=== PATIENT | male | born 1985 | race Caucasian/White ===

== ENCOUNTER 2024-09-17 19:24 | Inpatient (IN) | payer MEDICAID ==
[~2024-09-17] VITALS: Ht 182.9 cm; Wt 75.5 kg
[2024-09-17 20:29] LABS: BASOPHILS # (AUTO) 0.1 X10'3 (0-0.2); BASOPHILS % (AUTO) 1.2 % (0-1); EOSINOPHILS # (AUTO) 0.3 X10'3 (0-0.9); HEMATOCRIT 46.2 % (42.0-52.0); HEMOGLOBIN 15.1 g/dl (14.0-17.9); LYMPHOCYTES # (AUTO) 1.9 X10'3 (1.1-4.8); LYMPHOCYTES % (AUTO) 17.1 % (21-51); MEAN CORPUSCULAR HEMOGLOBIN 29.7 PG (27.0-31.0); MEAN CORPUSCULAR HGB CONC 32.6 g/dL (33.0-36.5); MEAN CORPUSCULAR VOLUME 91.1 FL (78-98); MEAN PLATELET VOLUME 7.3 FL (7.4-10.4); MONOCYTES # (AUTO) 0.8 X10'3 (0-0.9); NEUTROPHILS % (AUTO) 71.7 % (42-75); PLATELET COUNT 370 X10'3 (140-440); RED BLOOD COUNT 5.07 X10'6 (4.70-6.10); RED CELL DISTRIBUTION WIDTH 14.4 % (11.5-14.5); WHITE BLOOD COUNT 11.1 X10'3 (4.5-11.0)
[2024-09-17 20:52] LABS: ALANINE AMINOTRANSFERASE 23 U/L (12-78); ALBUMIN 4.1 G/DL (3.4-5.0); ALBUMIN/GLOBULIN RATIO 1.2 (1.1-1.5); ALKALINE PHOSPHATASE 133 IU/L (46-116); ANION GAP 9 (8-16); ASPARTATE AMINO TRANSFERASE 12 U/L (10-37); BILIRUBIN,TOTAL 0.3 MG/DL (0.1-1.0); BLOOD UREA NITROGEN 23 MG/DL (7-18); BUN/CREATININE RATIO 23.7 (10.0-20.0); CALCIUM 8.7 MG/DL (8.5-10.1); CHLORIDE 103 MMOL/L (99-107); CREATININE 0.97 MG/DL (0.60-1.10); GLUCOSE 112 MG/DL (70-104); POTASSIUM 4.3 MMOL/L (3.5-5.1); SODIUM 142 MMOL/L (135-145); THYROID STIMULATING HORMONE 0.83 ulU/ml (0.34-4.50); TOTAL CARBON DIOXIDE 29.8 MMOL/L (24-32); TOTAL PROTEIN 7.4 G/DL (6.4-8.2); eCRCL 110 ML/MIN; eGFR 85 ML/MIN
[2024-09-17 21:25] LABS: BILIRUBIN,URINE NEGATIVE (Neg); CLARITY,URINE CLEAR (Clear); COLOR,URINE YELLOW (Yellow); GLUCOSE, URINE NEGATIVE (Neg); KETONES,URINE NEGATIVE (Neg); LEUKOCYTE ESTERASE ,URINE NEGATIVE (Neg); NITRITES, URINE NEGATIVE (Neg); OCCULT BLOOD,URINE NEGATIVE (Neg); PH,URINE 7.5 (4.8-8.0); PROTEIN,URINE NEGATIVE (Neg); UROBILINOGEN,URINE 0.2 E.U/dL (0.2-1.0)
[2024-09-17 21:26] LABS: UA COLLECTION TYPE CLN CATCH MIDSTREAM
[2024-09-17] MEDS ORDERED: NO HOME MEDS (21:33)
[2024-09-17] MEDS: lithium carbonate 150mg capsule PO ONE (21:39)
[2024-09-17] MEDS: lamoTRIgine 100mg tablet PO ONE (21:39)
[2024-09-17 21:46] LABS: URINE AMPHETAMINE SCREEN NEGATIVE (Neg); URINE BARBITUATE SCREEN NEGATIVE (Neg); URINE BENZODIAZEPINES SCREEN NEGATIVE (Neg); URINE CANNABINOID SCREEN NEGATIVE (Neg); URINE COCAINE SCREEN NEGATIVE (Neg); URINE METHADONE SCREEN NEGATIVE (Neg); URINE OPIATE SCREEN NEGATIVE (Neg); URINE PHENCYCLIDINE SCREEN NEGATIVE (Neg)
[2024-09-18] MEDS: lamoTRIgine 100mg tablet PO SCH (08:00)
[2024-09-18 09:05] LABS: ETHANOL < 10 MG/DL (<10)
[2024-09-18] MEDS: lithium carbonate 150mg capsule PO SCH (09:44)
[2024-09-18 14:09] VITALS: BP 92/72; PULSE 110; RESP 20; TEMP 97.8; O2SAT 97
[2024-09-18] MEDS ORDERED: loperamide 2mg capsule PO PRN (14:40)
[2024-09-18] MEDS ORDERED: chlorproMAZINE 25mg tablet PO PRN (14:40)
[2024-09-18] MEDS ORDERED: mag hydrox/Alum hydrox/simeth 30ml oral suspension PO PRN (14:40)
[2024-09-18] MEDS ORDERED: ondansetron 4mg rapidly disintigrating tab PO PRN (14:40)
[2024-09-18] MEDS ORDERED: diphenhydrAMINE 25mg capsule PO PRN (14:40)
[2024-09-18] MEDS ORDERED: hydrOXYzine 25 MG tablet PO PRN (14:40)
[2024-09-18] MEDS ORDERED: acetaminophen 325mg tablet PO PRN ×2 (14:40)
[2024-09-18] MEDS ORDERED: magnesium hydroxide 30ml (MOM) UD suspension PO PRN (14:40)
[2024-09-18 14:57] VITALS: RESP 20; O2SAT 97
[2024-09-18 18:45] VITALS: RESP 18; O2SAT 98
[2024-09-18 19:24] VITALS: BP 112/58; PULSE 71; RESP 16; TEMP 98.3; O2SAT 99
[2024-09-19 07:00] VITALS: RESP 16; O2SAT 99
[2024-09-19 08:00] VITALS: BP 101/58; PULSE 61; RESP 16; TEMP 97.5; O2SAT 97
[2024-09-19 09:26] LABS: CHOL/HDL RATIO 2.4 (0.00-4.99); CHOLESTEROL 137 MG/DL (0-200); HDL CHOLESTEROL 58 MG/DL (35-60); LDL CHOLESTEROL 72 MG/DL (50-100); TRIGLYCERIDES 59 MG/DL (20-135)
[2024-09-19 09:59] LABS: HEMOGLOBIN A1C 5.3 % (4.5-6.2)
[2024-09-19 18:32] VITALS: RESP 18; O2SAT 98
[2024-09-19 19:19] VITALS: BP 98/55; PULSE 74; RESP 16; TEMP 97.8; O2SAT 99
[2024-09-20 07:00] VITALS: RESP 16; O2SAT 98
[2024-09-20] MEDS: lamoTRIgine 25mg tablet PO SCH (07:44)
[2024-09-20] MEDS: lamoTRIgine 100mg tablet PO SCH (07:45)
[2024-09-20 08:00] VITALS: BP 96/56; PULSE 60; RESP 16; TEMP 98; O2SAT 98
[2024-09-20 19:00] VITALS: RESP 17; O2SAT 99
[2024-09-20 20:00] VITALS: BP 104/70; PULSE 64; RESP 17; TEMP 97.4; O2SAT 99
[2024-09-21 07:00] VITALS: RESP 15; O2SAT 98
[2024-09-21 08:00] VITALS: BP 101/60; PULSE 61; RESP 15; TEMP 98.3; O2SAT 98
[2024-09-21] MEDS ORDERED: LAMO25TA5 PO (12:04)
[2024-09-21] MEDS ORDERED: LITH150C8 PO (12:04)
[2024-09-21 19:00] VITALS: RESP 18; O2SAT 100
[2024-09-21 20:00] VITALS: BP 101/57; PULSE 65; RESP 18; TEMP 98.1; O2SAT 100
[2024-09-22 07:00] VITALS: RESP 18; O2SAT 98
[2024-09-22 08:00] VITALS: BP 111/62; PULSE 64; RESP 18; TEMP 98.7; O2SAT 98
[2024-09-22 20:00] VITALS: RESP 14; O2SAT 100
[2024-09-22 20:05] VITALS: BP 104/64; PULSE 65; RESP 14; TEMP 98.2; O2SAT 100
[2024-09-23 07:00] VITALS: RESP 16; O2SAT 98
[2024-09-23 08:00] VITALS: BP 101/50; PULSE 60; RESP 16; TEMP 98.8; O2SAT 98
[2024-09-23 20:00] VITALS: RESP 16; O2SAT 100
[2024-09-23 20:21] VITALS: BP 110/68; PULSE 69; RESP 16; TEMP 96.9; O2SAT 100
[2024-09-24 07:00] VITALS: BP 98/50; PULSE 59; RESP 16; TEMP 97.7; O2SAT 96
[2024-09-24 19:00] VITALS: RESP 16; O2SAT 100
[2024-09-24 19:50] VITALS: BP 105/61; PULSE 75; RESP 16; TEMP 98.2; O2SAT 100
[2024-09-25 08:00] VITALS: BP 100/59; PULSE 60; RESP 16; TEMP 97.8; O2SAT 97
[2024-09-25] MEDS: lamoTRIgine 25mg tablet PO ONE (12:44)
[2024-09-25 20:00] VITALS: BP 108/58; PULSE 63; RESP 20; TEMP 97.7; O2SAT 100
[2024-09-25 20:53] VITALS: RESP 20; O2SAT 100
[2024-09-26 07:30] VITALS: BP 101/54; PULSE 63; RESP 14; TEMP 98.1; O2SAT 96
[2024-09-26 07:45] VITALS: RESP 14; O2SAT 96
[2024-09-26] MEDS: lamoTRIgine 25mg tablet PO SCH (08:16)
[2024-09-26 19:00] VITALS: RESP 16; O2SAT 93
[2024-09-26 20:00] VITALS: BP 99/59; PULSE 97; RESP 16; TEMP 97.8; O2SAT 93
[2024-09-26] MEDS: traZODone 50mg tablet PO PRN (21:40)
[2024-09-27 07:00] VITALS: RESP 16; O2SAT 98
[2024-09-27 08:46] VITALS: BP 104/61; PULSE 98; RESP 16; TEMP 98.8; O2SAT 98
[2024-09-27 19:00] VITALS: RESP 19; O2SAT 98
[2024-09-27 19:40] VITALS: BP 110/85; PULSE 80; RESP 19; TEMP 98; O2SAT 98
[2024-09-27] MEDS: traZODone 50mg tablet PO PRN (21:31)
[2024-09-28 07:00] VITALS: RESP 12; O2SAT 100
[2024-09-28 08:00] VITALS: BP 113/74; PULSE 60; RESP 12; TEMP 98; O2SAT 100
[2024-09-28] MEDS ORDERED: traZODone 50mg tablet PO PRN (12:00)
[2024-09-28 19:00] VITALS: RESP 16; O2SAT 100
[2024-09-28 20:00] VITALS: BP 106/60; PULSE 70; RESP 16; TEMP 97.9; O2SAT 100
[2024-09-28] MEDS: traZODone 50mg tablet PO PRN (21:54)
[2024-09-29 07:00] VITALS: RESP 12; O2SAT 98
[2024-09-29 08:00] VITALS: BP 99/52; PULSE 59; RESP 12; TEMP 98; O2SAT 98
[2024-09-29] MEDS: lamoTRIgine 25mg tablet PO SCH (08:35)
[2024-09-29] MEDS: lithium carbonate 150mg capsule PO SCH (18:26)
[2024-09-29 19:00] VITALS: RESP 16; O2SAT 99
[2024-09-29 20:00] VITALS: BP 120/72; PULSE 77; RESP 16; TEMP 97.6; O2SAT 99
[2024-09-30 07:00] VITALS: RESP 16; O2SAT 97
[2024-09-30] MEDS: lithium carbonate 150mg capsule PO SCH ×2 (07:55→12:37)
[2024-09-30 08:00] VITALS: BP 89/53; PULSE 60; RESP 16; TEMP 97.6; O2SAT 97
[2024-09-30 19:22] VITALS: BP 97/59; PULSE 71; RESP 16; TEMP 97.8; O2SAT 100
[2024-09-30 20:00] VITALS: RESP 16; O2SAT 100
[2024-10-01 08:00] VITALS: BP 101/60; PULSE 64; RESP 16; TEMP 97.8; O2SAT 98
[2024-10-01] MEDS: lamoTRIgine 25mg tablet PO SCH (08:41)
[2024-10-01 19:00] VITALS: RESP 17; O2SAT 100
[2024-10-01 20:00] VITALS: BP 108/75; PULSE 67; RESP 17; TEMP 97.7; O2SAT 100
[2024-10-02 08:00] VITALS: PULSE 79; RESP 18; TEMP 97.2; O2SAT 98
== END 2024-10-02 11:02 | DRG 753 ==
LOC: ER 19:26 → ADULT MH 09-18 13:45 → UNDOADMIN 09-18 13:45 → ADULT MH 09-18 14:09
PROVIDERS: ADMIT Psychiatry & Neurology Psychiatry; ATTEND Psychiatry & Neurology Psychiatry
PROC: GZHZZZZ Group Psychotherapy (ICD-10-PCS; principal; 2024-09-19)
PROC: GZ51ZZZ Individual Psychotherapy, Behavioral (ICD-10-PCS; 2024-09-19)
DX: F31.9 Bipolar disorder, unspecified (principal); R45.851 Suicidal ideations; Z59.02 Unsheltered homelessness; Z20.822 Contact with and (suspected) exposure to COVID-19; F12.90 Cannabis use, unspecified, uncomplicated
CPT/HCPCS: 36415; 71045; 80053; 80061; 80178; 80305; 80320; 81003; 83036; 84443; 85025; 87081; 87811; 99285